=== PATIENT | female | born 1975 ===

== ENCOUNTER 2017-10-17 09:52 | Day surgery (SDC) | payer OTHER ==
[2017-10-17 10:50] VITALS: O2SAT 100
[2017-10-17] MEDS ORDERED: Propofol 10 mg/ml Inj (20 ML) ONE (11:09)
[2017-10-17] MEDS ORDERED: Lidocaine Hydrochloride 5 ML INJ ONE (11:10)
[2017-10-17 11:59] VITALS: TEMP 98.2
[2017-10-17 12:39] VITALS: BP 104/56; PULSE 62; RESP 14
== END 2017-10-17 13:40 | disposition home or self-care (01) ==
LOC: C.ENDO 09:52
PROVIDERS: ATTEND Internal Medicine
DX: R10.84 Generalized abdominal pain (principal); K59.09 Other constipation; K64.8 Other hemorrhoids; R68.81 Early satiety; K44.9 Diaphragmatic hernia without obstruction or gangrene; K29.70 Gastritis, unspecified, without bleeding; R56.9 Unspecified convulsions; J45.909 Unspecified asthma, uncomplicated; Z79.899 Other long term (current) drug therapy
CPT/HCPCS: 43239; 45378; 84703; 88305; 88313; 88342; J2704; J3010